=== PATIENT | male | born 1995 ===

== ENCOUNTER 2016-11-22 21:41 | Emergency (ER) | payer OTHER ==
[2016-11-22 21:57] VITALS: TEMP 100
[2016-11-22] MEDS ORDERED: NS 1,000 ML IV ONE ×2 (22:37→22:38)
[2016-11-22] MEDS ORDERED: LORazepam 2 MG/ML INJ IVP ONE (22:37)
--- NOTE | 2016-11-22 22:44 | EDPHY ---
H & P Stated Complaint: Pt took acid and xanax Time Seen by Provider: 11/22/16 22:33 HPI/ROS: HPI The patient presents with LSD intoxication, feeling hallucinations, general agitation and generally unwell. At about 2:00 p.m., he says he used 1 tab of acid. He began to feel lot of hallucinations so at 9:00 p.m. took a dose of Xanax. His symptoms persisted any felt uncomfortable so he called 911. In the ambulance, he did receive a dose of Valium IV with some improvement in his symptoms. Now he feels some hallucinations and anxiety. He denies any SI or HI. He denies any pain. He denies any traumatic injuries.. REVIEW OF SYSTEMS Constitutional: No fever, no chills. Eyes: No discharge. ENT: No sore throat. Cardiovascular: No chest pain, no palpitations. Respiratory: No cough, no shortness of breath. Gastrointestinal: No abdominal pain, no vomiting. Genitourinary: No hematuria. Musculoskeletal: No back pain. Skin: No rashes. Neurological: No headache. PMHx: Healthy Soc Hx: Visiting from [place] staying in a rented house with friends PHYSICAL General Appearance: Alert, no distress Eyes: Pupils equal and round no pallor or injection ENT, Mouth: Mucous membranes moist Respiratory: There are no retractions, lungs are clear to auscultation Cardiovascular: Tachycardic rate with regular rhythm Gastrointestinal: Abdomen is soft and non-tender, no masses, bowel sounds normal Neurological: A&O, moves all extremities Skin: Warm and dry, no rashes Musculoskeletal: Neck is supple non tender Extremities: symmetrical, full range of motion Psychiatric: Patient is oriented X 3, there is no agitation Source: Patient Exam Limitations: Intoxication - Personal History Current Tetanus/Diphtheria Vaccine: Unsure Current Tetanus Diphtheria and Acellular Pertussis (TDAP): Unsure - Medical/Surgical History Hx Asthma: No Hx Chronic Respiratory Disease: No Hx Diabetes: No Hx Cardiac Disease: No Hx Renal Disease: No Hx Cirrhosis: No Hx Alcoholism: No Hx HIV/AIDS: No Hx Splenectomy or Spleen Trauma: No Other PMH: N/A - Social History Smoking Status: Never smoked Constitutional: Initial Vital Signs Temperature (C) 37.8 C 11/22/16 21:56 Heart Rate 116 H 11/22/16 21:56 Respiratory Rate 18 11/22/16 21:56 Blood Pressure 147/92 H 11/22/16 21:56 O2 Sat (%) 97 11/22/16 21:56 O2 Delivery Mode Room Air Allergies/Adverse Reactions: No Known Allergies Allergy (Unverified 11/22/16 21:58) Home Medications: Medication Instructions Recorded NK [No Known Home Meds] 11/22/16 Medical Decision Making Differential Diagnosis: This is a 21-year-old male who is healthy who presents with LSD intoxication with hallucinations and anxiety. On exam, he is tachycardic and somewhat anxious appearing. He has no signs of injury. Differential diagnosis includes LSD intoxication, other hallucinogen use, polysubstance abuse, alcohol intoxication. In the emergency room, the patient was given IV fluid for presumed volume depletion. Ativan was administered for his anxiety. He had improvement in his symptoms and was well enough to go home. He was discharged. - Data Points Medications Given: Discontinued Medications Sodium Chloride (Ns) 1,000 mls @ 0 mls/hr IV ONCE ONE PRN Reason: Wide Open Stop: 11/22/16 22:38 Last Admin: 11/22/16 22:49 Dose: 1,000 mls Sodium Chloride (Ns) 1,000 mls @ 0 mls/hr IV ONCE ONE PRN Reason: Wide Open Stop: 11/22/16 22:39 Last Admin: 11/22/16 22:50 Dose: 1,000 mls Lorazepam (Ativan Injection) 1 mg IVP EDNOW ONE Stop: 11/22/16 22:38 Last Admin: 11/22/16 22:49 Dose: 1 mg Departure - Departure Disposition: Home, Routine, Self-Care Clinical Impression: LSD reaction, Tachycardia Condition: Good Instructions: Polysubstance Abuse (ED) Additional Instructions: Please return to the emergency room if your worse in any way. Referrals: Patient,NotPresent [Unknown] - As per Instructions
[2016-11-23 00:58] VITALS: BP 138/86; PULSE 100; RESP 16; O2SAT 95
== END 2016-11-23 00:58 | disposition home or self-care (01) ==
DX: F16.90 Hallucinogen use, unspecified, uncomplicated (principal); R00.0 Tachycardia, unspecified
CPT/HCPCS: 96374; J2060